=== PATIENT | female | born 2000 | race African-American/Black ===

== ENCOUNTER 2018-12-24 20:35 | Emergency (ER) | payer OTHER ==
[~2018-12-24] VITALS: Ht 157.5 cm; Wt 73.5 kg
[2018-12-24 20:43] VITALS: BP 126/77
[2018-12-24 21:49] LABS: APPEARANCE,URINE CLEAR (CLEAR); BILIRUBIN,URINE NEGATIVE (NEGATIVE); BLOOD, URINE NEGATIVE (NEGATIVE); COLOR,URINE YELLOW (YELLOW); LEUKOCYTE ESTERASE ,URINE TRACE (NEGATIVE); NITRITE, URINE NEGATIVE (NEGATIVE); UGLUCOSE NEGATIVE (NEGATIVE)
[2018-12-24] MEDS ORDERED: diphenhydrAMINE 12.5 MG/5 ML UDC PO ONE (21:55)
[2018-12-24 21:59] LABS: RBC,URINE 0-5 /HPF (0-5)
[2018-12-24 22:12] VITALS: BP 120/70
== END 2018-12-24 22:10 | disposition home or self-care (01) ==
LOC: MED 20:38
DX: R10.2 Pelvic and perineal pain (principal); F41.9 Anxiety disorder, unspecified; F32.9 Major depressive disorder, single episode, unspecified
CPT/HCPCS: 81001; 81025; 87086; 99283; Q0163

== ENCOUNTER 2019-07-25 12:51 | Emergency (ER) | payer OTHER ==
[~2019-07-25] VITALS: Ht 157.5 cm; Wt 77.1 kg
--- NOTE | 2019-07-25 13:00 | NUR ---
c/o feeling increased anxiety/depression over the last few days. Pt stated "I just want someone to talk to." pt denies SI/HI. Pt states she was seen at an urgent care a few days ago and was given a medication but she does not know the name. Pt says she only took the medication one time because it made her drowsy. Bed in low position, side rail up x1.
[2019-07-25 13:06] VITALS: BP 127/95
--- NOTE | 2019-07-25 13:06 | NUR ---
Rasta ambulated to bed 6. RN evaluating patient at bedside.
--- NOTE | 2019-07-25 13:40 | NUR ---
Dr. Jimenez is evaluating the patient at bedside.
--- NOTE | 2019-07-25 14:03 | NUR ---
PT STATES SHE DOES NOT WANT TO BE DISCHARGED WITHOUT SPEAKING WITH A ASSISTANT TENNIS PROFESSIONAL FIRST. PHILLY GARCIA WILL CALL [facility] TO LET HER KNOW
--- NOTE | 2019-07-25 14:05 | NUR ---
Patient discharged with v/s stable. Verbal after care instructions given and explained. Patient verbalized understanding. Ambulatory with steady gait. Advised to follow up with PMD. Pt walked out refusing her paper d/c instructions.
--- NOTE | 2019-07-25 14:05 | NUR ---
PT REFUSED HER D/C INSTRUCTIONS, VERBAL INSTRUCTIONS WERE GIVEN. WAS WAITING TO SPEAK TO MD BUT WALKED OUT
[2019-07-25 14:37] VITALS: BP 127/95
== END 2019-07-25 14:05 | disposition home or self-care (01) ==
LOC: MED 12:51
DX: F41.8 Other specified anxiety disorders (principal)
CPT/HCPCS: 99283

== ENCOUNTER 2019-10-05 17:41 | Emergency (ER) | payer OTHER, SELFPAY ==
[~2019-10-05] VITALS: Ht 157.5 cm; Wt 72.6 kg
[2019-10-05 17:48] VITALS: BP 124/80
--- NOTE | 2019-10-05 18:04 | NUR ---
LEFT WITHOUT BEING SEEN AT 1804.
== END 2019-10-05 18:07 | disposition left against medical advice (07) ==
LOC: MED 17:41 → EEVIPCON 17:41 → MED 18:07
DX: R50.9 Fever, unspecified (principal); Z53.21 Procedure and treatment not carried out due to patient leaving prior to being seen by health care provider